=== PATIENT | female | born 2000 | race Caucasian/White ===

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

== ENCOUNTER 2021-02-28 14:06 | Emergency (ER) | payer OTHER ==
[~2021-02-28 14:06] MED LIST: KEFLEX500 MG PO; PHENERGAN25 M1 PO; PROMETHEGA12.5 MG/SU PR; TAMIFLU 75MG CA75 MG PO
[2021-02-28 15:49] LABS: INFLUENZA A NAA NEGATIVE (NEGATIVE)
[2021-02-28 15:57] LABS: CORONAVIRUS 2019 SARS-COV-2 POSITIVE (NEGATIVE)
[2021-02-28 16:12] LABS: BASOPHIL 0.7 % (0-2); EOSINOPHIL 1.3 % (0-5); HCT 42.7 % (37.0-47.0); LYMPHOCYTE 6.1 % (15-48); MCH 28.6 pg (25.0-31.0); MCHC 32.8 g/dL (32.0-36.0); MCV 87.3 fL (78.0-100.0); MONOCYTE 11.9 % (0-12); MPV 12.5 fL (6.0-9.5); NEUTROPHIL 79.7 % (41-80); NRBC 0; PLT 177 K/uL (150-400); RBC 4.89 M/uL (4.20-5.40); RDW 13.2 % (11.5-14.0); WBC 6.1 K/uL (4.0-10.5)
[2021-02-28 16:21] LABS: BUN/CREAT RATIO (CALC) 10.9 RATIO; CREATININE 0.64 mg/dL (0.51-0.95); POTASSIUM 3.6 mmol/L (3.5-5.1)
[2021-02-28 18:22] LABS: BILIRUBIN NEGATIVE (NEGATIVE); BLOOD NEGATIVE Ery/uL (NEGATIVE); COLOR YELLOW (YELLOW); GLUCOSE (U) NORMAL (NORMAL); LEUKOCYTES NEGATIVE Leu/uL (NEGATIVE); NITRITE NEGATIVE (NEGATIVE); PROTEIN NEGATIVE (NEGATIVE)
[2021-02-28 18:27] LABS: CLARITY SLIGHTLY HAZY (CLEAR)
== END 2021-02-28 19:36 | disposition home or self-care (01) ==
LOC: FER 14:06
PROVIDERS: Nurse Practitioner Family
DX: O98.511 Other viral diseases complicating pregnancy, first trimester (principal); O10.911 Unspecified pre-existing hypertension complicating pregnancy, first trimester; U07.1 COVID-19; Z3A.10 10 weeks gestation of pregnancy; Z79.899 Other long term (current) drug therapy
CPT/HCPCS: 36415; 80048; 81003; 85025; J3490; J7030; U0002